=== PATIENT | female | born 1965 | race Caucasian/White ===

== ENCOUNTER 2020-12-03 22:49 | Emergency (ER) | payer OTHER ==
[2020-12-03] MEDS ORDERED: DECADRON 10MG INJ. ONE (23:27)
[2020-12-03] MEDS ORDERED: Sodium Chloride 0.9% 1000 ML 1,000 ML ONE (23:27)
[2020-12-03] MEDS: DECADRON 10MG INJ. IV ONE (23:31)
[2020-12-03] MEDS: Sodium Chloride 0.9% 1000 ML 1,000 ML IV STA (23:31)
[2020-12-03] MEDS ORDERED: MORPHINE SULFATE 2 MG INJ ONE (23:39)
[2020-12-03] MEDS: MORPHINE SULFATE 2 MG INJ IV ONE (23:42)
[2020-12-03 23:43] LABS: Absolute Neutrophil Ct (ANC) 8.07 (1.4-6.9); BASOPHIL % 0.1 % (0.0-0.4); Basophil (Absolute #) 0.01 (0-0.4); Eosinophil % 1.7 % (0.00-5.0); Eosinophil (Absolute #) 0.19 (0-0.5); Hematocrit 42.3 % (35-47); Hemoglobin 14.1 gm/dl (12.0-16.0); Lymphocyte (Absolute #) 1.95 (1.0-4.6); Lymphocytes % 17.3 % (24.0-44.0); Mean Cell Volume 89.4 fl (78-100); Mean Corpuscular Hemoglobin 29.8 pg (26-32); Mean Corpuscular Hgb Concent. 33.3 g/dl (32-36); Mean Platelet Volume 11.4 fl (7.5-11.0); Monocyte (Absolute #) 1.08 (0.0-1.3); Monocytes % 9.6 % (0.0-12.0); Neutrophil % 71.3 % (36.0-66.0); Platelet Count 252 K/mm3 (150-450); Red Blood Count 4.73 M/mm3 (4.1-5.4); Red Cell Distribution Width 12.3 % (11.5-14.0); White Blood Count 11.3 K/mm3 (4.0-10.5)
[2020-12-03 23:49] LABS: ALBUMIN 4.3 g/dL (3.5-5.0); ALKALINE PHOSPHATASE 200 U/L (38-126); ANION GAP 15.5 MEQ/L (5-15); BLOOD UREA NITROGEN 13 mg/dL (7-17); CHLORIDE 104 mmol/L (98-107); Calcium 9.3 mg/dL (8.4-10.2); Carbon Dioxide 22 mmol/L (22-30); Creatinine 1 0.45 mg/dL (0.52-1.04); EST GLOMERULAR FILTRATION RATE > 60.0 ML/MIN; Glucose 165 mg/dL (74-106); Potassium 3.6 mmol/L (3.5-5.1); SGOT/AST 88 U/L (14-36); SGPT/ALT 105 U/L (0-35); SODIUM 138 mmol/L (137-145); Total Protein 7.8 g/dL (6.3-8.2)
[2020-12-04 00:07] LABS: INFLUENZA A NEGATIVE (NEGATIVE); INFLUENZA B NEGATIVE (NEGATIVE)
--- NOTE | 2020-12-04 00:33 | ERPHSYRPT ---
- History of Present Illness Time Seen by Provider: 12/03/20 22:55 Source: patient Exam Limitations: no limitations Patient Subjective Stated Complaint: pt states she was covid positive last wednesday. has been having severe fatigue, sore throat. today she has had some shortness of breath and a severe headache today. Triage Nursing Assessment: pt alert and oriented, answers questions approp. pt back per wheelchair and ambulates to stretcher and into bathroom with no assist. skin warm and dry. respirations nonlabored with lungs cta. pt states no cough and no cough noted during exam. pupils equal and reactive. bilat upper and lower ext strength equal and wnl. Physician History: Patient is a 55-year-old female Covid positive x3 days. Patient presents to our ED with complaints of severe fatigue sore throat shortness of breath and a headache. Symptoms have been constant. Symptoms are moderate in intensity. No associated nausea or vomiting. No diarrhea. No rash. No fever. No associated chest pain. Timing/Duration: today Severity: moderate Modifying Factors: Improves With: nothing Associated Symptoms: denies symptoms Allergies/Adverse Reactions: No Known Drug Allergies Allergy (Verified 12/04/20 00:14) Home Medications: Lorazepam 1 mg [Ativan 1 MG] 1 mg PO TIDPRN PRN 04/23/13 [History] Zolpidem Tartrate [Ambien Cr] 12.5 mg PO HS 04/23/13 [History] Duloxetine HCl 30 mg [Cymbalta 30 MG Capsule] 30 mg PO DAILY 12/04/20 [History] Hx Tetanus, Diphtheria Vaccination/Date Given: No Hx Influenza Vaccination/Date Given: No Hx Pneumococcal Vaccination/Date Given: No Immunizations Up to Date: No Travel Risk - International Travel Have you traveled outside of the country in past 3 weeks: No - Coronavirus Screening Are you exhibiting any of the following symptoms?: Yes Symptoms: Shortness of Breath, Loss of Taste or Smell, Headaches/Body Aches/Fatigue Close contact with a COVID-19 positive Pt in past 14-21 Days: Yes - Vaccine Status Have you recieved a Covid-19 vaccination: No - Review of Systems Constitutional: No Symptoms, No Fever, No Chills Eyes: No Symptoms Ears, Nose, & Throat: No Symptoms Respiratory: No Symptoms, No Cough, No Dyspnea Cardiac: No Symptoms, No Chest Pain, No Edema, No Syncope Abdominal/Gastrointestinal: No Symptoms, No Abdominal Pain, No Nausea, No Vomiting, No Diarrhea Genitourinary Symptoms: No Symptoms, No Dysuria Musculoskeletal: No Symptoms, No Back Pain, No Neck Pain Skin: No Symptoms, No Rash Neurological: No Symptoms, No Dizziness, No Focal Weakness, No Sensory Changes Psychological: No Symptoms Endocrine: No Symptoms Hematologic/Lymphatic: No Symptoms Immunological/Allergic: No Symptoms All Other Systems: Reviewed and Negative - Past Medical History Pertinent Past Medical History: Yes Neurological History: Migraines ENT History: No Pertinent History Cardiac History: No Pertinent History Respiratory History: No Pertinent History Endocrine Medical History: No Pertinent History Musculoskeletal History: No Pertinent History GI Medical History: No Pertinent History History: No Pertinent History Psycho-Social History: Anxiety, Bipolar, Depression, Panic Disorder Female Reproductive Disorders: No Pertinent History - Past Surgical History Past Surgical History: Yes Neuro Surgical History: No Pertinent History Cardiac: No Pertinent History Gastrointestinal: No Pertinent History Genitourinary: No Pertinent History Musculoskeletal: No Pertinent History Female Surgical History: Hysterectomy - Social History Smoking Status: Never smoker Exposure to second hand smoke: Yes Drug Use: none Patient Lives Alone: No Significant Family History: no pertinent family hx - Female History Hx Last Menstrual Period: hyster - Nursing Vital Signs Nursing Vital Signs: Initial Vital Signs Temperature 98.1 F 12/03/20 22:49 Pulse Rate 75 12/03/20 22:49 Respiratory Rate 18 12/03/20 22:49 Blood Pressure 146/82 12/03/20 22:49 O2 Sat by Pulse Oximetry 100 12/03/20 22:49 Pain Scale Pain Intensity 2 - Physical Exam General Appearance: no apparent distress, alert Eye Exam: PERRL/EOMI, eyes nml inspection Ears, Nose, Throat Exam: normal ENT inspection, TMs normal, pharynx normal, moist mucous membranes Neck Exam: normal inspection, non-tender, supple, full range of motion Respiratory Exam: normal breath sounds, lungs clear, No respiratory distress Cardiovascular Exam: regular rate/rhythm, normal heart sounds, normal peripheral pulses Gastrointestinal/Abdomen Exam: soft, normal bowel sounds, No tenderness, No mass Back Exam: normal inspection, normal range of motion, No CVA tenderness, No robyn tebral tenderness Extremity Exam: normal inspection, normal range of motion, pelvis stable Neurologic Exam: alert, oriented x 3, cooperative, normal mood/affect, nml cerebellar function, nml station & gait, sensation nml, No motor deficits Skin Exam: normal color, warm, dry, No rash Lymphatic Exam: No adenopathy SpO2 Interpretation: normal SpO2: 100 O2 Delivery: Room Air - Course Nursing assessment & vital signs reviewed: Yes EKG Interpreted by Me: RATE (69), Sinus Rhythm, NORMAL AXIS, Left [place] Deviation, NORMAL INTERVALS - Radiology Exams Chest X-ray Interpretation: Teleradiologist Report (Patchy ill-defined areas of groundglass disease in the left lower lung field with additional patchy gr oundglass disease in the right lower lung field. By basilar patchy groundglass disease concerning for Covid infection.) - CT Exams Head CT Interpretation: Tele-radiologist Report (No acute intracranial abnormality.) Ordered Tests: Active Orders 24 hr Category Date Time Status [employer] Manager STAT Care 12/03/20 23:06 Active EKG-ER Only STAT Care 12/03/20 23:06 Active IV Insertion STAT Care 12/03/20 23:06 Active Pulse Oximetry (ED) STAT Care 12/03/20 23:06 Active CHEST 1 VIEW (PORTABLE) Stat Exams 12/03/20 23:56 Taken BLOOD CULTURE Stat Lab 12/03/20 23:30 Received CBC W DIFF Stat Lab 12/03/20 23:20 Completed CMP Stat Lab 12/03/20 23:20 Completed CULTURE,URINE Stat Lab 12/03/20 23:25 Received D-DIMER QUANTITATIVE Stat Lab 12/03/20 23:20 Completed INFLUENZA A+B BRADY Stat Lab 12/03/20 23:20 Completed Lactic Acid Stat Lab 12/03/20 23:06 Completed TROPONIN Q3H Lab 12/04/20 01:37 Completed TROPONIN Q3H Lab 12/04/20 04:30 Ordered TROPONIN Q3H Lab 12/04/20 07:30 Ordered TROPONIN Q3H Lab 12/04/20 10:30 Ordered TROPONIN Q3H Lab 12/04/20 13:30 Ordered UA W/RFX UR CULTURE Stat Lab 12/03/20 23:25 Completed Medication Summary Discontinued Medications Generic Name Dose Route Start Last Admin Trade Name Freq PRN Reason Stop Dose Admin Dexamethasone Sodium Phosphate 6 mg 12/03/20 23:07 12/03/20 23:31 Decadron 10mg Inj. IV 12/03/20 23:08 6 mg STAT ONE Administration Dexamethasone Sodium Phosphate Confirm 12/03/20 23:27 Decadron 10mg Inj. Administered 12/03/20 23:28 Dose 10 mg .ROUTE .STK-MED ONE Sodium Chloride 1,000 mls @ 999 mls/hr 12/03/20 23:06 12/03/20 23:31 Sodium Chloride 0.9% 1000 Ml IV 12/04/20 00:06 999 mls/hr .Q1H1M STA Administration Sodium Chloride Confirm 12/03/20 23:27 Sodium Chloride 0.9% 1000 Ml Administered 12/03/20 23:28 Dose 1,000 mls @ ud .ROUTE .STK-MED ONE Ketorolac Tromethamine 30 mg 12/04/20 00:40 12/04/20 00:50 Toradol 30 Mg Injection IV 12/04/20 00:41 30 mg STAT ONE Administration Ketorolac Tromethamine Confirm 12/04/20 00:48 Toradol 30 Mg Injection Administered 12/04/20 00:49 Dose 30 mg .ROUTE .STK-MED ONE Morphine Sulfate 2 mg 12/03/20 23:39 12/03/20 23:42 Morphine Sulfate 2 Mg Inj IV 12/03/20 23:40 2 mg STAT ONE Administration Morphine Sulfate Confirm 12/03/20 23:39 Morphine Sulfate 2 Mg Inj Administered 12/03/20 23:40 Dose 2 mg .ROUTE .STK-MED ONE Prochlorperazine Edisylate 10 mg 12/04/20 00:39 12/04/20 00:50 Compazine 10 Mg/2 Ml IV 12/04/20 00:40 10 mg STAT ONE Administration Prochlorperazine Edisylate Confirm 12/04/20 00:48 Compazine 10 Mg/2 Ml Administered 12/04/20 00:49 Dose 10 mg .ROUTE .STK-MED ONE Lab/Rad Data: Laboratory Result Diagrams 12/03/20 23:20 12/03/20 23:20 Laboratory Results 12/04/20 12/03/20 12/03/20 Range/Units 01:37 23:30 23:25 WBC (4.0-10.5) K/mm3 RBC (4.1-5.4) M/mm3 Hgb (12.0-16.0) gm/dl Hct (35-47) % MCV (78-100) fl MCH (26-32) pg MCHC (32-36) g/dl RDW (11.5-14.0) % Plt Count (150-450) K/mm3 MPV (7.5-11.0) fl Gran % (36.0-66.0) % Eos # (Auto) (0-0.5) Absolute Lymphs (auto) (1.0-4.6) Absolute Monos (auto) (0.0-1.3) Lymphocytes % (24.0-44.0) % Monocytes % (0.0-12.0) % Eosinophils % (0.00-5.0) % Basophils % (0.0-0.4) % Absolute Granulocytes (1.4-6.9) Basophils # (0-0.4) D-Dimer (215-500) ng/mL Sodium (137-145) mmol/L Potassium (3.5-5.1) mmol/L Chloride (98-107) mmol/L Carbon Dioxide (22-30) mmol/L Anion Gap (5-15) MEQ/L BUN (7-17) mg/dL Creatinine (0.52-1.04) mg/dL Estimated GFR ML/MIN Glucose (74-106) mg/dL Lactic Acid (0.4-2.0) Calcium (8.4-10.2) mg/dL Total Bilirubin (0.2-1.3) mg/dL AST (14-36) U/L ALT (0-35) U/L Alkaline Phosphatase (38-126) U/L Troponin I < 0.012 (0.000-0.034) ng/mL Serum Total Protein (6.3-8.2) g/dL Albumin (3.5-5.0) g/dL Urine Color YELLOW (YELLOW) Urine Appearance CLOUDY (CLEAR) Urine pH 7.0 (5-6) Ur Specific [place] 1.021 (1.005-1.025) Urine Protein 30 (Negative) Urine Ketones TRACE (NEGATIVE) Urine Blood NEGATIVE (0-5) Yo/ul Urine Nitrite NEGATIVE (NEGATIVE) Urine Bilirubin NEGATIVE (NEGATIVE) Urine Urobilinogen 4 (0-1) mg/dL Ur Leukocyte Esterase TRACE (NEGATIVE) Urine WBC (Auto) NONE (0-5) /HPF Urine RBC (Auto) NONE (0-2) /HPF U Epithel Cells (Auto) NONE (FEW) /HPF Urine Bacteria (Auto) NONE (NEGATIVE) /HPF Amorphous Crystals FEW (NEGATIVE) /HPF Urine Mucus (Auto) SLIGHT (NEGATIVE) /HPF Urine Culture Reflexed YES (NO) Urine Glucose NEGATIVE (NEGATIVE) mg/dL Influenza Type A Ag (NEGATIVE) Influenza Type B Ag (NEGATIVE) Group A Strep Antibody NOT DETECTED (NEGATIVE) Slides for Path Review 12/03/20 12/03/20 12/03/20 Range/Units 23:20 23:20 23:20 WBC (4.0-10.5) K/mm3 RBC (4.1-5.4) M/mm3 Hgb (12.0-16.0) gm/dl Hct (35-47) % MCV (78-100) fl MCH (26-32) pg MCHC (32-36) g/dl RDW (11.5-14.0) % Plt Count (150-450) K/mm3 MPV (7.5-11.0) fl Gran % (36.0-66.0) % Eos # (Auto) (0-0.5) Absolute Lymphs (auto) (1.0-4.6) Absolute Monos (auto) (0.0-1.3) Lymphocytes % (24.0-44.0) % Monocytes % (0.0-12.0) % Eosinophils % (0.00-5.0) % Basophils % (0.0-0.4) % Absolute Granulocytes (1.4-6.9) Basophils # (0-0.4) D-Dimer 446 (215-500) ng/mL Sodium 138 (137-145) mmol/L Potassium 3.6 (3.5-5.1) mmol/L Chloride 104 (98-107) mmol/L Carbon Dioxide 22 (22-30) mmol/L Anion Gap 15.5 H (5-15) MEQ/L BUN 13 (7-17) mg/dL Creatinine 0.45 L (0.52-1.04) mg/dL Estimated GFR > 60.0 ML/MIN Glucose 165 H (74-106) mg/dL Lactic Acid (0.4-2.0) Calcium 9.3 (8.4-10.2) mg/dL Total Bilirubin 0.50 (0.2-1.3) mg/dL AST 88 H (14-36) U/L ALT 105 H (0-35) U/L Alkaline Phosphatase 200 H (38-126) U/L Troponin I (0.000-0.034) ng/mL Serum Total Protein 7.8 (6.3-8.2) g/dL Albumin 4.3 (3.5-5.0) g/dL Urine Color (YELLOW) Urine Appearance (CLEAR) Urine pH (5-6) Ur Specific [place] (1.005-1.025) Urine Protein (Negative) Urine Ketones (NEGATIVE) Urine Blood (0-5) Yo/ul Urine Nitrite (NEGATIVE) Urine Bilirubin (NEGATIVE) Urine Urobilinogen (0-1) mg/dL Ur Leukocyte Esterase (NEGATIVE) Urine WBC (Auto) (0-5) /HPF Urine RBC (Auto) (0-2) /HPF U Epithel Cells (Auto) (FEW) /HPF Urine Bacteria (Auto) (NEGATIVE) /HPF Amorphous Crystals (NEGATIVE) /HPF Urine Mucus (Auto) (NEGATIVE) /HPF Urine Culture Reflexed (NO) Urine Glucose (NEGATIVE) mg/dL Influenza Type A Ag NEGATIVE (NEGATIVE) Influenza Type B Ag NEGATIVE (NEGATIVE) Group A Strep Antibody (NEGATIVE) Slides for Path Review 12/03/20 12/03/20 Range/Units 23:20 23:06 WBC 11.3 H (4.0-10.5) K/mm3 RBC 4.73 (4.1-5.4) M/mm3 Hgb 14.1 (12.0-16.0) gm/dl Hct 42.3 (35-47) % MCV 89.4 (78-100) fl MCH 29.8 (26-32) pg MCHC 33.3 (32-36) g/dl RDW 12.3 (11.5-14.0) % Plt Count 252 (150-450) K/mm3 MPV 11.4 H (7.5-11.0) fl Gran % 71.3 H (36.0-66.0) % Eos # (Auto) 0.19 (0-0.5) Absolute Lymphs (auto) 1.95 (1.0-4.6) Absolute Monos (auto) 1.08 (0.0-1.3) Lymphocytes % 17.3 L (24.0-44.0) % Monocytes % 9.6 (0.0-12.0) % Eosinophils % 1.7 (0.00-5.0) % Basophils % 0.1 (0.0-0.4) % Absolute Granulocytes 8.07 H (1.4-6.9) Basophils # 0.01 (0-0.4) D-Dimer (215-500) ng/mL Sodium (137-145) mmol/L Potassium (3.5-5.1) mmol/L Chloride (98-107) mmol/L Carbon Dioxide (22-30) mmol/L Anion Gap (5-15) MEQ/L BUN (7-17) mg/dL Creatinine (0.52-1.04) mg/dL Estimated GFR ML/MIN Glucose (74-106) mg/dL Lactic Acid 1.5 (0.4-2.0) Calcium (8.4-10.2) mg/dL Total Bilirubin (0.2-1.3) mg/dL AST (14-36) U/L ALT (0-35) U/L Alkaline Phosphatase (38-126) U/L Troponin I (0.000-0.034) ng/mL Serum Total Protein (6.3-8.2) g/dL Albumin (3.5-5.0) g/dL Urine Color (YELLOW) Urine Appearance (CLEAR) Urine pH (5-6) Ur Specific [place] (1.005-1.025) Urine Protein (Negative) Urine Ketones (NEGATIVE) Urine Blood (0-5) Yo/ul Urine Nitrite (NEGATIVE) Urine Bilirubin (NEGATIVE) Urine Urobilinogen (0-1) mg/dL Ur Leukocyte Esterase (NEGATIVE) Urine WBC (Auto) (0-5) /HPF Urine RBC (Auto) (0-2) /HPF U Epithel Cells (Auto) (FEW) /HPF Urine Bacteria (Auto) (NEGATIVE) /HPF Amorphous Crystals (NEGATIVE) /HPF Urine Mucus (Auto) (NEGATIVE) /HPF Urine Culture Reflexed (NO) Urine Glucose (NEGATIVE) mg/dL Influenza Type A Ag (NEGATIVE) Influenza Type B Ag (NEGATIVE) Group A Strep Antibody (NEGATIVE) Slides for Path Review YES - Progress Progress: improved Progress Note: Patient reassessed. She feels well. Vital stable. Patient ambulated in our ED. Patient maintained a normal O2 sat in the high 90s. EKG normal sinus rhythm. -3-hour troponin. Patient presented with a headache. CT head negative. D-dimer negative. Influenza negative. Patient had a mild sore throat. Rapid strep negative. Lactic acid was 1.5. Patient received IV fluids. Clinically patient appears well. Chest x-ray shows bibasilar opacities left greater than right. No indication for antibiotics at this time. She feels energetic now headache resolved. Case discussed with Dr. Ball feels patient is appropriate for discharge. Discussed the mildly elevated alk phos as well as the liver enzymes. No indication for further evaluation from an emergency room perspective. Patient will follow up with primary care doctor within 48 hours for reevaluation. Patient voiced no other complaints or concerns at this time. She is requesting discharge at this time. 12/04/20 02:[address] Other Will see patient in: other Counseled pt/family regarding: lab results, diagnosis, need for follow-up, rad results - Departure Departure Disposition: Home Clinical Impression: COVID-19, Fatigue, Shortness of breath, Headache, Elevated alkaline phosphatase level Condition: Stable Critical Care Time: No Referrals: JONATHON ADRIAN MD [Primary Care Provider] - Additional Instructions: Discharge/Care Plan SONY CASTRO was seen on 12/04/20 in the Emergency Room. The patient was counseled regarding Diagnosis,Lab results, Imaging studies, need for follow up and when to return to the Emergency Room. Prescriptions given: Discharge Note I have spoken with the patient and/or caregivers. I have explained the patient's condition, diagnosis and treatment plan based on the information available to me at this time. I have answered the patient's and/or caregiver's questions and addressed any concerns. The patient and/or caregivers have as good understanding of the patient's diagnosis, condition and treatment plan as can be expected at this point. The vital signs have been stable. The patient's condition is stable and appropriate for discharge from the emergency department. The patient will pursue further outpatient evaluation with the primary care physician or other designated or consulting physician as outlined in the discharge instructions. The patient and/or caregivers are agreeable to this plan of care and follow-up instructions have been explained in detail. The patient and/or caregivers have received these instruction. The patient/and or caregivers are aware that any significant change in condition or worsening of symptoms should prompt an immediate return to this or the closest emergency department or call 911.
[2020-12-04] MEDS ORDERED: TORAdol 30 mg Injection ONE (00:48)
[2020-12-04] MEDS ORDERED: Compazine 10 MG/2 ML ONE (00:48)
[2020-12-04] MEDS: TORAdol 30 mg Injection IV ONE (00:50)
[2020-12-04] MEDS: Compazine 10 MG/2 ML IV ONE (00:50)
[2020-12-04 01:03] LABS: Slide Review 1 YES
[2020-12-04 01:35] LABS: Amourphous Crystal FEW /HPF (NEGATIVE); Appearance CLOUDY (CLEAR); Bilirubin NEGATIVE (NEGATIVE); Blood NEGATIVE Ery/ul (0-5); Glucose NEGATIVE (NEGATIVE); Ketones TRACE (NEGATIVE); Leukocyte Esterase TRACE (NEGATIVE); Mucus SLIGHT /HPF (NEGATIVE); Nitrite NEGATIVE (NEGATIVE); Protein,Urine Dip 30 (Negative); Specific Gravity 1.021 (1.005-1.025); Urobilinogen 4 mg/dL (0-1)
[2020-12-04 02:09] VITALS: O2SAT 100
[2020-12-04 02:18] VITALS: BP 144/78; PULSE 74
--- NOTE | 2020-12-04 13:33 | XRAY ---
Exam: AP upright portable chest film from 12/03/2020. Comparison: AP portable chest film from 04/28/2010. Indication: 55-year-old female with dyspnea; patient is positive for covid-19; shortness of breath. Findings: The transverse heart size is within normal limits. Mild airspace/groundglass infiltrate is seen at the central left lung base. Less pronounced groundglass disease is seen at the right lung base as well. These findings are concerning for covid-19 lung infection. The upper and midlung zones remain clear. There is no pneumothorax or pleural effusion. No acute osseous process is seen. EKG leads are noted in place. Impression: 1. Mild bibasilar airspace/groundglass opacities, left greater than right, are seen. This is concerning for covid-19 lung infection.
--- NOTE | 2020-12-04 14:22 | XRAY ---
Exam: CT of the head without IV contrast from 12/04/2020. CTDI: 53.92 mGy Comparison: None. Indication: 55-year-old female with severe headaches; positive for Covid-19. Technique: Non-IV contrast axial images were obtained through the brain. Reconstructed coronal and sagittal images were created and reviewed. Findings: The ventricles are of normal size and configuration. No focal mass effect or midline shift is seen. No acute intracranial bleed or abnormal extra-axial fluid collection is seen. The benavidez matter-white matter interfaces appear unremarkable. No low attenuation infarct is seen within a major cerebral or cerebellar artery distribution. The cortical sulci and basilar cisterns appear unremarkable. There is some mild mucosal thickening at the inferior and lower medial aspect of the left maxillary sinus. A 10 mm retention cyst cannot be excluded at this latter location. No air-fluid levels are seen. The remainder of the paranasal sinuses appears essentially clear. There is some deviation of the nasal septum toward the left. The mastoid air cells are grossly clear without effusion. No gross abnormality of the orbits is seen. Mild generalized calvarial hyperostosis is seen. No fracture or other focal bone lesion within the calvarium is seen. Impression: 1. No acute intracranial bleed or other acute intracranial process. 2. Mild chronic sinus disease/sinusitis within the inferior aspect of the left maxillary sinus. 3. 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
== END 2020-12-04 02:36 | disposition home or self-care (01) ==
LOC: ED 22:49
DX: U07.1 COVID-19 (principal); R53.83 Other fatigue; J02.9 Acute pharyngitis, unspecified; R06.02 Shortness of breath; R51.9 Headache, unspecified; Z79.899 Other long term (current) drug therapy; R74.8 Abnormal levels of other serum enzymes
CPT/HCPCS: 36000; 36415; 70450; 71045; 80053; 81001; 83605; 84484; 85025; 85379; 87040; 87086; 87400; 87651; 93005; 93041; 94760; 96374; 96375; 99284; J1100; J1885; J2270

== ENCOUNTER 2022-10-05 09:16 | Emergency (ER) | payer OTHER ==
--- NOTE | 2022-10-05 09:24 | ERPHSYRPT ---
- History of Present Illness Time Seen by Provider: 10/05/22 09:24 Historian: patient Exam Limitations: no limitations Physician History: This is an overweight white female patient who is 57 years old and is a patient of Dr. Adrian who presents with epigastric abdominal pain of relatively sudden onset that occurred this morning. Patient states that she had strawberry s hortcake last evening for a meal. Patient also states that she took an injection of Ozempic Wednesday prior to this evaluation. Patient has a history of migraine headaches, anxiety/panic disorder, bipolar disorder and has had a hysterectomy in the past. Patient denies chest pain and she denies shortness of breath. She has had nausea and vomiting since the pain began this morning. She had no diarrhea. She has had no fever. She has never had this kind of pain before. The patient took Pepto-Bismol thinking it may be heartburn but this did not help her symptoms. Timing/Duration: today Quality: aching, sharpness Abdominal Pain Onset Location: epigastric Pain Radiation: no radiation Severity of Pain-Max: moderate Severity of Pain-Current: moderate Modifying Factors: Improves With: vomiting Associated Symptoms: nausea, vomiting, No chest pain, No diarrhea, No fever/chills, No neck pain, No shortness of breath Previous symptoms: no prior history Allergies/Adverse Reactions: No Known Drug Allergies Allergy (Verified 10/05/22 09:26) Home Medications: Lorazepam 1 mg [Ativan 1 MG] 1 mg PO TIDPRN PRN 04/23/13 [History] Zolpidem Tartrate [Ambien Cr] 12.5 mg PO HS 04/23/13 [History] Desvenlafaxine Succinate [Desvenlafaxine Succinate ER] 1 tab PO DAILY 10/05/22 [History] Hydrocodone/Acetaminophen [Hydrocodone-Acetamin 10-325 mg] 0.5 tab PO BID 10/05/22 [History] Semaglutide [Ozempic] 0.25 mg SQ WEEKLY 10/05/22 [History] Hx Tetanus, Diphtheria Vaccination/Date Given: No Hx Influenza Vaccination/Date Given: No Hx Pneumococcal Vaccination/Date Given: No Travel Risk - International Travel Have you traveled outside of the country in past 3 weeks: No - Coronavirus Screening Are you exhibiting any of the following symptoms?: No Close contact with a COVID-19 positive Pt in past 14-21 Days: No - Vaccine Status Have you recieved a Covid-19 vaccination: No - Review of Systems Constitutional: No Symptoms Eyes: No Symptoms Ears, Nose, & Throat: No Symptoms Respiratory: No Symptoms Cardiac: No Symptoms Abdominal/Gastrointestinal: Abdominal Pain (Epigastrium), Nausea, Vomiting, Appetite Changes, No Diarrhea, No Constipation Genitourinary Symptoms: No Symptoms Musculoskeletal: No Symptoms Skin: No Symptoms Neurological: No Symptoms Psychological: No Symptoms Endocrine: No Symptoms Hematologic/Lymphatic: No Symptoms Immunological/Allergic: No Symptoms All Other Systems: Reviewed and Negative - Past Medical History Pertinent Past Medical History: Yes Neurological History: Migraines ENT History: No Pertinent History Cardiac History: No Pertinent History Respiratory History: No Pertinent History Endocrine Medical History: No Pertinent History Musculoskeletal History: No Pertinent History GI Medical History: No Pertinent History History: No Pertinent History Psycho-Social History: Anxiety, Bipolar, Depression, Panic Disorder Female Reproductive Disorders: No Pertinent History - Past Surgical History Past Surgical History: Yes Neuro Surgical History: No Pertinent History Cardiac: No Pertinent History Gastrointestinal: No Pertinent History Genitourinary: No Pertinent History Musculoskeletal: No Pertinent History Female Surgical History: Hysterectomy - Social History Smoking Status: Never smoker Exposure to second hand smoke: Yes Drug Use: none Patient Lives Alone: No Significant Family History: no pertinent family hx - Nursing Vital Signs Nursing Vital Signs: Initial Vital Signs Pulse Rate 77 10/05/22 09:26 Respiratory Rate 17 10/05/22 09:26 Blood Pressure 141/84 10/05/22 09:26 O2 Sat by Pulse Oximetry 100 10/05/22 09:26 Pain Scale Pain Intensity 0 - Physical Exam General Appearance: mild distress, alert, anxiety, other (Overweight) Eye Exam: PERRL/EOMI, eyes nml inspection Ears, Nose, Throat Exam: normal ENT inspection, moist mucous membranes Neck Exam: normal inspection, non-tender, supple, full range of motion Respiratory Exam: normal breath sounds, lungs clear, airway intact, No chest tenderness, No respiratory distress Cardiovascular Exam: regular rate/rhythm, normal heart sounds, normal peripheral pulses Gastrointestinal/Abdomen Exam: soft, normal bowel sounds, tenderness (Gastrium), guarding (Epigastrium), No rebound Pelvic Exam: not done Rectal Exam: not done Back Exam: normal inspection, normal range of motion, No CVA tenderness, No vertebral tenderness Extremity Exam: normal inspection, normal range of motion, pelvis stable Neurologic Exam: alert, oriented x 3, cooperative, boot maker II-XII nml as tested, normal mood/affect, nml cerebellar function, nml station & gait, sensation nml Skin Exam: normal color, warm, dry Lymphatic Exam: No adenopathy SpO2 Interpretation: normal O2 Delivery: Room Air - Course Nursing assessment & vital signs reviewed: Yes Ordered Tests: Active Orders 24 hr Category Date Time Status IV Insertion STAT Care 10/05/22 09:45 Active ABDOMEN AND PELVIS W/0 CONTRAS [CT] Stat Exams 10/05/22 09:45 Completed AMYLASE Stat Lab 10/05/22 09:30 Completed CBC W DIFF Stat Lab 10/05/22 09:30 Completed CMP Stat Lab 10/05/22 09:30 Completed CULTURE,URINE Stat Lab 10/05/22 09:30 Received LIPASE Stat Lab 10/05/22 09:30 Completed UA W/RFX UR CULTURE Stat Lab 10/05/22 09:30 Completed Medication Summary Discontinued Medications Generic Name Dose Route Start Last Admin Trade Name Freq PRN Reason Stop Dose Admin Hydromorphone HCl 1 mg 10/05/22 09:45 10/05/22 10:01 Hydromorphone 1 Mg/1ml Inj IV 10/05/22 09:46 1 mg STAT ONE Administration Hydromorphone HCl Confirm 10/05/22 09:53 Hydromorphone 1 Mg/1ml Inj Administered 10/05/22 09:54 Dose 1 mg .ROUTE .STK-MED ONE Sodium Chloride 1,000 mls @ 999 mls/hr 10/05/22 09:45 10/05/22 11:05 Sodium Chloride 0.9% 1000 Ml IV 10/05/22 10:45 Infused .Q1H1M STA Infusion Sodium Chloride Confirm 10/05/22 09:53 Sodium Chloride 0.9% 1000 Ml Administered 10/05/22 09:54 Dose 1,000 mls @ ud .ROUTE .STK-MED ONE Ceftriaxone Sodium/Dextrose 1 g in 50 mls @ 100 mls/hr 10/05/22 11:55 10/05/22 12:36 Rocephin 1 Gm-D5w 50 Ml Bag IV 10/05/22 12:24 Infused STAT STA Infusion Ceftriaxone Sodium/Dextrose Confirm 10/05/22 11:56 Rocephin 1 Gm-D5w 50 Ml Bag Administered 10/05/22 11:57 Dose 1 g in 50 mls @ ud IV .STK-MED ONE Ondansetron HCl 4 mg 10/05/22 09:45 10/05/22 10:00 Ondansetron Hcl 4 Mg/2 Ml Vial IV 10/05/22 09:46 4 mg STAT ONE Administration Ondansetron HCl Confirm 10/05/22 09:53 Ondansetron Hcl 4 Mg/2 Ml Vial Administered 10/05/22 09:54 Dose 4 mg .ROUTE .STK-MED ONE Pantoprazole Sodium 40 mg 10/05/22 09:45 10/05/22 10:01 Pantoprazole 40 Mg Vial IV 10/05/22 09:46 40 mg STAT ONE Administration Pantoprazole Sodium Confirm 10/05/22 09:53 Pantoprazole 40 Mg Vial Administered 10/05/22 09:54 Dose 40 mg IV .STK-MED ONE Lab/Rad Data: Laboratory Result Diagrams 10/05/22 09:30 10/05/22 09:30 Laboratory Results 10/05/22 10/05/22 10/05/22 Range/Units 09:30 09:30 09:30 WBC 12.5 H (4.0-10.5) x10^3/uL RBC 4.65 (4.1-5.4) x10^6/uL Hgb 14.0 (12.0-16.0) g/dL Hct 42.0 (35-47) % MCV 90.3 (78-100) fL MCH 30.1 (26-32) pg MCHC 33.3 (32-36) g/dL RDW 12.4 (11.5-14.0) % Plt Count 298 (150-450) x10^3/uL MPV 10.0 (7.5-11.0) fL Gran % 70.5 H (36.0-66.0) % Immature Gran % (Auto) 0.4 (0.00-0.4) % Nucleat RBC Rel Count 0.0 (0.00-0.1) % Eos # (Auto) 0.39 (0-0.5) x10^3/uL Immature Gran # (Auto) 0.05 H (0.00-0.03) x10^3u/L Absolute Lymphs (auto) 2.25 (1.0-4.6) x10^3/uL Absolute Monos (auto) 0.94 (0.0-1.3) x10^3/uL Absolute Nucleated RBC 0.00 (0.00-0.01) x10^3u/L Lymphocytes % 18.0 L (24.0-44.0) % Monocytes % 7.5 (0.0-12.0) % Eosinophils % 3.1 (0.00-5.0) % Basophils % 0.5 (0.0-0.4) % Absolute Granulocytes 8.78 H (1.4-6.9) x10^3/uL Basophils # 0.06 (0-0.4) x10^3/uL Sodium 143 (137-145) mmol/L Potassium 3.2 L (3.5-5.1) mmol/L Chloride 105 (98-107) mmol/L Carbon Dioxide 27 (22-30) mmol/L Anion Gap 13.4 (5-15) MEQ/L BUN 11 (7-17) mg/dL Creatinine 0.63 (0.52-1.04) mg/dL Estimated GFR > 60.0 ML/MIN Glucose 133 H (74-106) mg/dL Calcium 9.1 (8.4-10.2) mg/dL Total Bilirubin 1.10 (0.2-1.3) mg/dL AST 128 H (14-36) U/L ALT 71 H (0-35) U/L Alkaline Phosphatase 159 H (38-126) U/L Serum Total Protein 7.5 (6.3-8.2) g/dL Albumin 4.1 (3.5-5.0) g/dL Amylase 62 (30-110) U/L Lipase 130 (23-300) U/L Urine Color Dark Yellow A (Yellow) Urine Appearance Cloudy A (Clear) Urine pH 7.0 (4.6-8.0) Ur Specific [place] 1.020 (1.005-1.030) Urine Protein Trace A (Negative) Urine Glucose (UA) Negative (Negative) mg/dL Urine Ketones 15 A (Negative) Urine Blood Negative (Negative) Urine Nitrite Negative (Negative) Urine Bilirubin Negative (Negative) Urine Urobilinogen 4.0 A (0.2) mg/dL Ur Leukocyte Esterase Small A (Negative) U Hyaline Cast (Auto) NONE SEEN (0-2) /LPF Urine Microscopic RBC 0-2 (0-5) /HPF Urine Microscopic WBC 6-10 A (0-5) /HPF Ur Epithelial Cells None Seen (None Seen) /HPF Urine Bacteria None Seen (None Seen) /HPF Urine Culture Reflexed YES (NO) - Progress Progress: improved, pain not gone completely, re-examined Progress Note: 10/05/22 11:57 This patient's medical issues 1 of moderate complexity. Level of complexity and the work-up performed is based on review of the patient's past medical history, review of the patient's medication list, review of the patient's drug allergy list, history of present illness and physical findings on examination. The work-up includes placement of a intravenous line, infusion of 1 L of normal saline solution, infusion of Zofran 4 mg intravenously, infusion of 1 mg of Dilaudid intravenously. In addition, we obtained a urinalysis, CBC, CMP, amylase and lipase levels as well as a CAT scan of the abdomen and pelvis. I reviewed the results of the blood and urine studies. She has a urinary tract infection which we will treat here in the emergency department with Rocephin 1 g intravenously and sent a prescription of Keflex 500 mg orally 3 times a day for the next 7 days. I am awaiting the results of the CAT scan of the abdomen pelvis which will be interpreted by the radiologist and I will review that impression. 10/05/22 12:47 CAT scan of the abdomen and pelvis without contrast shows no acute intra- abdominal or intrapelvic process. There is spondylodegenerative changes of the scan spine with diffuse osteoporosis. MRI is recommended if clinically indicated. I discussed these findings with the patient and family members. Counseled pt/family regarding: lab results, diagnosis, need for follow-up, rad results Medical Desision Making - Diagnostic Testing Diagnostic test were ordered, analyzed, and reviewed by me: Yes Radiological Interpretation: Reviewed by me, Teleradiologist Report - Risk of complications The pt has a mod risk of morbidity or mortality based on: Need for prescription drug management - Departure Departure Disposition: Home Clinical Impression: Abdominal pain, UTI (urinary tract infection), Elevated liver enzymes, Degenerative arthritis of spine Condition: Stable Critical Care Time: No Referrals: JONATHON ADRIAN MD [Primary Care Provider] - Follow up/PCP as directed Additional Instructions: Drink plenty of clear liquids. Take your medication as prescribed. Avoid fatty greasy spicy foods. Follow-up with your primary care provider today to make arranges for follow-up appointment in the next 3 days. Prescriptions: Ondansetron ODT 4 MG [Zofran Odt 4 mg] 4 mg PO Q6H PRN PRN #10 tablet PRN Reason: Vomiting Cephalexin Mh 500 mg [Keflex 500 mg] 500 mg PO TID #21 cap
[2022-10-05] MEDS ORDERED: Hydromorphone 1 mg/ml Injection IV ONE (09:45)
[2022-10-05] MEDS ORDERED: Zofran 4 MG/2 ML VIAL IV ONE (09:45)
[2022-10-05] MEDS ORDERED: Sodium Chloride 0.9% 1000 ML 1,000 ML IV STA (09:45)
[2022-10-05] MEDS ORDERED: PROTONIX 40 MG IV IV ONE ×2 (09:45→09:53)
[2022-10-05] MEDS ORDERED: Zofran 4 MG/2 ML VIAL ONE (09:53)
[2022-10-05] MEDS ORDERED: Hydromorphone 1 mg/ml Injection ONE (09:53)
[2022-10-05] MEDS ORDERED: Sodium Chloride 0.9% 1000 ML 1,000 ML ONE (09:53)
[2022-10-05 09:56] LABS: Absolute Neutrophil Ct (ANC) 8.78 x10^3/uL (1.4-6.9); BASOPHIL % 0.5 % (0.0-0.4); Basophil (Absolute #) 0.06 x10^3/uL (0-0.4); Eosinophil % 3.1 % (0.00-5.0); Eosinophil (Absolute #) 0.39 x10^3/uL (0-0.5); IMMATURE GRAN # 0.05 x10^3u/L (0.00-0.03); IMMATURE GRAN % 0.4 % (0.00-0.4); Lymphocyte (Absolute #) 2.25 x10^3/uL (1.0-4.6); Mean Cell Volume 90.3 fL (78-100); Mean Corpuscular Hemoglobin 30.1 pg (26-32); Mean Corpuscular Hgb Concent. 33.3 g/dL (32-36); Monocyte (Absolute #) 0.94 x10^3/uL (0.0-1.3); Monocytes % 7.5 % (0.0-12.0); Neutrophil % 70.5 % (36.0-66.0); Platelet Count 298 x10^3/uL (150-450); Red Blood Count 4.65 x10^6/uL (4.1-5.4); Red Cell Distribution Width 12.4 % (11.5-14.0); White Blood Count 12.5 x10^3/uL (4.0-10.5)
[2022-10-05 10:04] LABS: Appearance Cloudy (Clear); Bacteria None Seen /HPF (None Seen); Bilirubin Negative (Negative); Blood Negative (Negative); Epithelial Cells None Seen /HPF (None Seen); Glucose, Urine Negative (Negative); Hyaline Casts NONE SEEN /LPF (0-2); Ketones 15 (Negative); Leukocyte Esterase Small (Negative); Nitrite Negative (Negative); Protein,Urine Dip Trace (Negative); RBC 0-2 /HPF (0-5)
[2022-10-05 10:07] LABS: ALBUMIN 4.1 g/dL (3.5-5.0); ALKALINE PHOSPHATASE 159 U/L (38-126); AMYLASE 62 U/L (30-110); ANION GAP 13.4 MEQ/L (5-15); BLOOD UREA NITROGEN 11 mg/dL (7-17); CHLORIDE 105 mmol/L (98-107); Calcium 9.1 mg/dL (8.4-10.2); Carbon Dioxide 27 mmol/L (22-30); Creatinine 1 0.63 mg/dL (0.52-1.04); EST GLOMERULAR FILTRATION RATE > 60.0 ML/MIN; Glucose 133 mg/dL (74-106); LIPASE 130 U/L (23-300); Potassium 3.2 mmol/L (3.5-5.1); SGOT/AST 128 U/L (14-36); SGPT/ALT 71 U/L (0-35); SODIUM 143 mmol/L (137-145); Total Protein 7.5 g/dL (6.3-8.2)
[2022-10-05 10:14] LABS: ADD URINE CULTURE? YES (NO)
[2022-10-05] MEDS ORDERED: ROCEPHIN 1 Gm-D5w 50 ml Bag** 1 G/50 ML IVPB IV STA (11:55)
[2022-10-05] MEDS ORDERED: ROCEPHIN 1 Gm-D5w 50 ml Bag** 1 G/50 ML IVPB IV ONE (11:56)
[2022-10-05 12:02] VITALS: O2SAT 96
--- NOTE | 2022-10-05 12:37 | XRAY ---
CLINICAL HISTORY:Epigastric ABD pain COMPARISON:None. TECHNIQUES:Multi-slice CT scan of the abdomen and pelvis without IV contrast with multi-planar reconstruction. CTDI: 12.5 mGy, DLP: 618.37 mGy*cm. FINDINGS: Liver is average in size showing homogeneous parenchymal pattern. No focal parenchymal lesions. No evidence of intra or extra-hepatic biliary radicals dilatation. Gall bladder shows no stones or masses. Spleen is average in size showing normal texture. The right kidney is slightly mal-rotated, both kidneys are of normal site and size showing no stones, cysts, or back pressure changes. Normal both ureters. Normal CT appearance of pancreas and adrenal glands. Limited filling of the urinary bladder showing no stones within. Multiple pelvic small calcifications are noted. Status post hysterectomy with no sizable masses at the operative bed. No evidence of gross pathologically enlarged lymph nodes. No ascites. Large bowel diverticulosis noted without definite acute diverticulitis. No evidence of bowel dilatation. Appendix is visualized and appears grossly unremarkable with no evidence of periappendiceal fat stranding. Spondylodegnerative changes of the scanned spine is noted with diffuse osteoporosis and multi-level vertebral wedging and Intervertebral disc vacuum phenomena. Multilevel disc osteophyte complexes also noted. Lower chest cuts revealed bilateral basal reticulations. IMPRESSION: 1. Status post hysterectomy with no sizable masses at the operative bed. 2. Spondylodegnerative changes of the scanned spine with diffuse osteoporosis and multi-level vertebral wedging and vacuum phenomena. Multilevel disc osteophyte complexes also noted, would recommend MRI lumbar spine for further evaluation if clinically indicated. Electronically Signed by: Tulio Broderick MD. (10/05/2022 11:32:17 RECREATION ADVISER)
[2022-10-05 13:03] VITALS: BP 107/60; PULSE 64
== END 2022-10-05 13:11 | disposition home or self-care (01) ==
LOC: ED 09:16
DX: N39.0 Urinary tract infection, site not specified (principal); R10.13 Epigastric pain; R74.8 Abnormal levels of other serum enzymes; M47.9 Spondylosis, unspecified; R11.2 Nausea with vomiting, unspecified; Z79.85 Long-term (current) use of injectable non-insulin antidiabetic drugs; Z79.891 Long term (current) use of opiate analgesic; Z79.899 Other long term (current) drug therapy; Z28.310 Unvaccinated for COVID-19
CPT/HCPCS: 36000; 36415; 74176; 80053; 81001; 82150; 83690; 85025; 87086; 96365; 96374; 96375; 99284; J0696; J1170; J2405

== ENCOUNTER 2025-01-23 21:53 | Emergency (ER) | payer OTHER ==
[2025-01-23 22:22] VITALS: TEMP 97
[2025-01-23] MEDS ORDERED: Hydromorphone 1 mg/ml Injection ONE (22:28)
[2025-01-23] MEDS ORDERED: Zofran 4 MG/2 ML VIAL ONE (22:28)
[2025-01-23] MEDS ORDERED: PROTONIX 40 MG IV IV ONE (22:28)
[2025-01-23] MEDS: Zofran 4 MG/2 ML VIAL IV ONE (22:32)
[2025-01-23] MEDS: Hydromorphone 1 mg/ml Injection IV ONE (22:33)
[2025-01-23] MEDS: PROTONIX 40 MG IV IV ONE (22:35)
--- NOTE | 2025-01-23 22:36 | ERPHSYRPT ---
- History of Present Illness Time Seen by Provider: 01/23/25 22:20 Historian: patient Exam Limitations: no limitations Patient Subjective Stated Complaint: pt reports sudden onset sharp abdominal pain beginning around 8pm this evening, pt reports vomiting x [address] to the hospital. pt reports normal BM today. Triage Nursing Assessment: pt is aox3, appears in pain, pupils perrl, afebrile, resps easy and non labored, cap refill < 3 seconds, abd is distended, tender diffusely, bowel sounds present, pt skin pink warm dry. Physician History: This is a 59-year-old white female patient of Dr. Adrian who drove herself to the emergency department secondary to epigastric and bilateral upper quadrant abdominal pain. She denies chest pain. She denies shortness of breath. And route to the hospital she vomited 4 times per her report. Symptoms came on rather suddenly at around 8 PM. At approximately 6 PM patient ate [employer] chicken wrap. I did review labs that were performed earlier today I interpreted them as well. There was no evidence of any acute, emergent medical issues based on those labs that were done earlier today. Patient has a history of a hysterectomy in the past but no other abdominal surgeries. Patient has a history of migraine headaches, panic disorder, bipolar disorder, gastroesophageal reflux disease and diabetes. Timing/Duration: today Quality: sharpness, stabbing Abdominal Pain Onset Location: RUQ, LUQ, epigastric Pain Radiation: no radiation Severity of Pain-Max: moderate Severity of Pain-Current: moderate Modifying Factors: Improves With: nothing Associated Symptoms: loss of appetite, nausea, vomiting, No chest pain, No diaphoresis, No diarrhea, No shortness of breath Previous symptoms: no prior history, no recent treatment Allergies/Adverse Reactions: No Known Drug Allergies Allergy (Verified 01/23/25 22:21) Home Medications: Lorazepam 1 mg [Ativan 1 MG] 1 mg PO TIDPRN PRN 04/23/13 [History] Zolpidem Tartrate [Ambien Cr] 12.5 mg PO HS 04/23/13 [History] Desvenlafaxine Succinate [Desvenlafaxine Succinate ER] 1 tab PO DAILY 10/05/22 [History] Hydrocodone/Acetaminophen [Hydrocodone-Acetamin 10-325 mg] 0.5 tab PO BID 10/05/22 [History] Semaglutide [Ozempic] 0.25 mg SQ WEEKLY 10/05/22 [History] Hx Tetanus, Diphtheria Vaccination/Date Given: No Hx Influenza Vaccination/Date Given: Yes Hx Pneumococcal Vaccination/Date Given: No Immunizations Up to Date: Yes Travel Risk - International Travel Have you traveled outside of the country in past 3 weeks: No - Emerging Infectious Disease Are you exhibiting symptoms associated with any current EIDs: No - Review of Systems Constitutional: No Symptoms Eyes: No Symptoms Ears, Nose, & Throat: No Symptoms Respiratory: No Symptoms Cardiac: No Symptoms Abdominal/Gastrointestinal: Abdominal Pain, Nausea, Vomiting, Appetite Changes Genitourinary Symptoms: No Symptoms Musculoskeletal: No Symptoms Skin: No Symptoms Neurological: No Symptoms Psychological: No Symptoms Endocrine: No Symptoms Hematologic/Lymphatic: No Symptoms Immunological/Allergic: No Symptoms All Other Systems: Reviewed and Negative - Past Medical History Pertinent Past Medical History: Yes Neurological History: Migraines ENT History: No Pertinent History Cardiac History: No Pertinent History Respiratory History: No Pertinent History Endocrine Medical History: No Pertinent History Musculoskeletal History: No Pertinent History GI Medical History: No Pertinent History History: No Pertinent History Psycho-Social History: Anxiety, Bipolar, Depression, Panic Disorder Female Reproductive Disorders: No Pertinent History - Past Surgical History Past Surgical History: Yes Neuro Surgical History: No Pertinent History Cardiac: No Pertinent History Respiratory: No Pertinent History Gastrointestinal: No Pertinent History Genitourinary: No Pertinent History Musculoskeletal: No Pertinent History Female Surgical History: Hysterectomy Significant Family History: no pertinent family hx - Social History Smoking Status: Never smoker Exposure to second hand smoke: Yes Drug Use: none - Social Determinants of Health Will the patient participate in the screening: Yes Do you worry about a steady place to live?: No Do you have any problems with any of the following?: No known problems In the past 12 months,have you had to go without utilities?: No Transportation Issues: No Has anyone in your support network made you feel unsafe?: No Have you or anyone in your house had to go w/o enough food: No - Nursing Vital Signs Nursing Vital Signs: Initial Vital Signs Temperature 97.0 F 01/23/25 21:58 Pulse Rate 69 01/23/25 21:58 Respiratory Rate 20 01/23/25 21:58 Blood Pressure 189/85 01/23/25 21:58 O2 Sat by Pulse Oximetry 100 01/23/25 21:58 Pain Scale Pain Intensity 0 - Physical Exam General Appearance: no apparent distress, alert, anxiety Eye Exam: PERRL/EOMI, eyes nml inspection Ears, Nose, Throat Exam: normal ENT inspection, moist mucous membranes Neck Exam: normal inspection, non-tender, supple, full range of motion Respiratory Exam: normal breath sounds, lungs clear, airway intact, No chest tenderness, No respiratory distress Cardiovascular Exam: regular rate/rhythm, normal heart sounds, normal peripheral pulses Gastrointestinal/Abdomen Exam: soft, normal bowel sounds, tenderness (Epigastrium primarily but also has tenderness to bilateral upper quadrants), guarding (Epigastrium and bilateral upper quadrants to palpation), No rebound Pelvic Exam: not done Rectal Exam: not done Back Exam: normal inspection, normal range of motion, No CVA tenderness, No vertebral tenderness Extremity Exam: normal inspection, normal range of motion, pelvis stable Neurologic Exam: alert, oriented x 3, cooperative, 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, nml cerebellar function, nml station & gait, sensation nml Skin Exam: normal color, warm, dry Lymphatic Exam: No adenopathy SpO2 Interpretation: normal SpO2: 100 O2 Delivery: Room Air - Course Nursing assessment & vital signs reviewed: Yes Ordered Tests: Active Orders 24 hr Category Date Time Status IV Insertion STAT Care 01/23/25 22:25 Active ABDOMEN AND PELVIS W/0 CONTRAS [CT] Stat Exams 01/23/25 22:25 Completed AMYLASE Stat Lab 01/23/25 23:10 Completed CBC W DIFF Stat Lab 01/23/25 23:10 Completed CMP Stat Lab 01/23/25 23:10 Completed LIPASE Stat Lab 01/23/25 23:10 Completed UA W/RFX UR CULTURE Stat Lab 01/23/25 22:27 Completed Medication Summary Discontinued Medications Generic Name Dose Route Start Last Admin Trade Name Freq PRN Reason Stop Dose Admin Hydromorphone HCl 1 mg 01/23/25 22:25 01/23/25 22:33 Hydromorphone 1 Mg/1ml Inj IV 01/23/25 22:26 1 mg STAT ONE Administration Hydromorphone HCl Confirm 01/23/25 22:28 Hydromorphone 1 Mg/1ml Inj Administered 01/23/25 22:29 Dose 1 mg .ROUTE .STK-MED ONE Sodium Chloride 1,000 mls @ 999 mls/hr 01/23/25 22:25 01/23/25 23:30 Sodium Chloride 0.9% 1000 Ml IV 01/23/25 23:25 Infused .Q1H1M STA Infusion Sodium Chloride Confirm 01/23/25 22:28 Sodium Chloride 0.9% 1000 Ml Administered 01/23/25 22:29 Dose 1,000 mls @ ud .ROUTE .STK-MED ONE Ondansetron HCl 4 mg 01/23/25 22:25 01/23/25 22:32 Ondansetron Hcl 4 Mg/2 Ml Vial IV 01/23/25 22:26 4 mg STAT ONE Administration Ondansetron HCl Confirm 01/23/25 22:28 Ondansetron Hcl 4 Mg/2 Ml Vial Administered 01/23/25 22:29 Dose 4 mg .ROUTE .STK-MED ONE Pantoprazole Sodium 40 mg 01/23/25 22:25 01/23/25 22:35 Pantoprazole 40 Mg Vial IV 01/23/25 22:26 40 mg STAT ONE Administration Pantoprazole Sodium Confirm 01/23/25 22:28 Pantoprazole 40 Mg Vial Administered 01/23/25 22:29 Dose 40 mg IV .STK-MED ONE Lab/Rad Data: Laboratory Result Diagrams 01/23/25 23:10 01/23/25 23:10 Laboratory Results 01/23/25 01/23/25 01/23/25 Range/Units 23:10 23:10 22:27 WBC 14.8 H (3.98-10.04) x10^3/uL RBC 4.30 (3.93-5.22) x10^6/uL Hgb 13.2 (11.2-15.7) g/dL Hct 40.7 (34.1-44.9) % MCV 94.7 (79.4-94.8) fL MCH 30.7 (25.6-32.2) pg MCHC 32.4 (32.2-35.5) g/dL RDW 12.0 (11.7-14.4) % Plt Count 289 (182-369) x10^3/uL MPV 9.8 (9.4-12.3) fL Gran % 68.2 (34.0-71.1) % Immature Gran % (Auto) 0.5 H (0.001-0.429) % Nucleat RBC Rel Count 0.0 (0.00-0.2) % Eos # (Auto) 0.39 H (0.04-0.36) x10^3/uL Immature Gran # (Auto) 0.07 H (0.001-0.031) x10^3u/L Absolute Lymphs (auto) 3.28 (1.18-3.74) x10^3/uL Absolute Monos (auto) 0.88 H (0.24-0.86) x10^3/uL Absolute Nucleated RBC 0.00 (0.00-0.012) x10^3u/L Lymphocytes % 22.2 (19.3-51.7) % Monocytes % 6.0 (4.7-12.5) % Eosinophils % 2.6 (0.7-5.8) % Basophils % 0.5 (0.1-1.2) % Absolute Granulocytes 10.07 H (1.56-6.13) x10^3/uL Basophils # 0.07 (0.01-0.08) x10^3/uL Sodium 141 (135-145) mmol/L Potassium 3.6 (3.5-5.1) mmol/L Chloride 109 H (98-107) mmol/L Carbon Dioxide 27 (22-30) mmol/L Anion Gap 8.5 (5-15) MEQ/L BUN 16 (7-17) mg/dL Creatinine 0.55 (0.52-1.04) mg/dL Estimated GFR 105.5 ML/MIN Glucose 167 H (74-106) mg/dL Calcium 8.8 (8.4-10.2) mg/dL Total Bilirubin < 0.10 L (0.2-1.3) mg/dL AST 26 (14-36) U/L ALT 20 (0-35) U/L Alkaline Phosphatase 117 (38-126) U/L Serum Total Protein 6.8 (6.3-8.2) g/dL Albumin 3.9 (3.5-5.0) g/dL Amylase 73 (30-110) U/L Lipase 101 (23-300) U/L Urine Color Yellow (Yellow) Urine Appearance Turbid A (Clear) Urine pH 6.5 (4.6-8.0) Ur Specific [place] 1.020 (1.005-1.030) Urine Protein Negative (Negative) Urine Glucose (UA) Negative (Negative) mg/dL Urine Ketones Negative (Negative) Urine Blood Negative (Negative) Urine Nitrite Negative (Negative) Urine Bilirubin Negative (Negative) Urine Urobilinogen 1.0 A (0.2) mg/dL Ur Leukocyte Esterase Trace A (Negative) U Hyaline Cast (Auto) NONE SEEN (0-2) /LPF Urine Microscopic RBC 0-2 (0-5) /HPF Urine Microscopic WBC 3-5 (0-5) /HPF Ur Epithelial Cells None Seen (None Seen) /HPF Urine Bacteria None Seen (None Seen) /HPF Urine Culture Reflexed NO (NO) - Progress Progress: improved, re-examined Progress Note: 01/23/25 22:31 My medical decision making and the assignment of moderate complexity of this patient's medical issue today is based on review of the patient's past medical history, review of the patient's medication list, reviewed the patient drug allergy list, history of present illness and physical findings on examination. The workup in this patient includes placement of intravenous line, infusion of crystalloid solution, infusion of Protonix, infusion of Zofran, infusion of Dilaudid, CBC, CMP, amylase, lipase, urinalysis, CT scan of the abdomen pelvis without contrast. Differential diagnosis includes but is not limited to bowel obstruction, gastric ulcer, duodenal ulcer, gastritis, pancreatitis, cholecystitis/cholelithiasis, appendicitis, pyelonephritis, UTI 01/24/25 00:08 I interpreted the patient's laboratory data results. Based on the laboratory data results, there is leukocytosis but no other acute, emergent medical issue. Her leukocytosis is likely secondary to stress reaction from vomiting 4 times just prior to arrival. The CT scan of the abdomen pelvis without contrast was interpreted by the radiologist and I reviewed the impression. The impression states large bowel diverticulosis without definite acute diverticulitis. No other abnormality is seen in this present study. The appendix is seen and is within normal limits 01/24/25 00:23 Patient is reexamined. She has no abdominal pain. She has no chest pain. She has no nausea or vomiting symptoms. She is feeling much better. Counseled pt/family regarding: lab results, diagnosis, rad results Medical Desision Making - Diagnostic Testing Diagnostic test were ordered, analyzed, and reviewed by me: Yes Radiological Interpretation: Reviewed by me, Teleradiologist Report - Risk of complications Low Risk: Low risk of morbidity from additional dx testing or treatment The pt has a mod risk of morbidity or mortality based on: Need for prescription drug management - Departure Departure Disposition: Home Clinical Impression: Epigastric abdominal pain, Vomiting Condition: Stable Critical Care Time: No Referrals: JONATHON ADRIAN MD [Primary Care Provider, [facility]] - Follow up/PCP as directed Additional Instructions: Drink plenty of clear liquids before advancing your diet. Avoid fatty greasy spicy foods. Call your primary care provider later today, 01/24/2025, for further evaluation management. Prescriptions: Ondansetron ODT 4 MG [Zofran Odt 4 mg] 4 mg PO Q6H PRN PRN #10 tablet PRN Reason: Vomiting
[2025-01-23 23:13] LABS: BASOPHIL % 0.5 % (0.1-1.2); Basophil (Absolute #) 0.07 x10^3/uL (0.01-0.08); Eosinophil (Absolute #) 0.39 x10^3/uL (0.04-0.36); Hematocrit 40.7 % (34.1-44.9); Hemoglobin 13.2 g/dL (11.2-15.7); IMMATURE GRAN # 0.07 x10^3u/L (0.001-0.031); IMMATURE GRAN % 0.5 % (0.001-0.429); Lymphocyte (Absolute #) 3.28 x10^3/uL (1.18-3.74); Mean Corpuscular Hemoglobin 30.7 pg (25.6-32.2); Mean Corpuscular Hgb Concent. 32.4 g/dL (32.2-35.5); Monocyte (Absolute #) 0.88 x10^3/uL (0.24-0.86); NUCLEATED RBC # 0.00 x10^3u/L (0.00-0.012); NUCLEATED RBC % 0.0 % (0.00-0.2); Platelet Count 289 x10^3/uL (182-369); Red Blood Count 4.30 x10^6/uL (3.93-5.22); White Blood Count 14.8 x10^3/uL (3.98-10.04)
[2025-01-23 23:21] LABS: Glucose, Urine Negative (Negative); Protein,Urine Dip Negative (Negative); RBC 0-2 /HPF (0-5)
[2025-01-23 23:28] LABS: Calcium 8.8 mg/dL (8.4-10.2); Carbon Dioxide 27 mmol/L (22-30); Creatinine 1 0.55 mg/dL (0.52-1.04); EST GLOMERULAR FILTRATION RATE 105.5 ML/MIN; Glucose 167 mg/dL (74-106); Potassium 3.6 mmol/L (3.5-5.1); SGOT/AST 26 U/L (14-36); SGPT/ALT 20 U/L (0-35); Total Protein 6.8 g/dL (6.3-8.2)
--- NOTE | 2025-01-24 00:02 | XRAY ---
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 Coronal and sagittal reconstructions were also performed, as indicated, to increase the sensitivity for detecting clinically relevant pathology. The CT scan was performed according to ALARA (as low as reasonably achievable). FINDINGS: The visualized lung bases are clear. Evaluation of the abdominal and pelvic visceral organs is limited without intravenous contrast. The unenhanced liver, spleen, pancreas, and adrenal glands are grossly unremarkable. The gallbladder is present. The kidneys are normal in size and attenuation without obvious calcification. There is no hydronephrosis or perinephric stranding. The ureters are normal in caliber. No adenopathy or fluid collections are seen. Large bowel diverticulosis is noted without definite acute diverticulitis. No evidence of focal or diffuse bowel wall thickening or evidence of bowel obstruction is seen. The appendix is visualized in the right lower quadrant and appears within normal limits. The aorta is normal in caliber. The urinary bladder is normal in contour. The pelvic viscera are grossly unremarkable. Multiple small pelvic calcifications are noted. Spondylodegenerative changes of the scanned spine are noted with diffuse osteoporosis, multilevel vertebral wedging, and intervertebral disc vacuum phenomena. Multilevel disc osteophyte complexes are also noted. IMPRESSION: 1. Large bowel diverticulosis is noted without definite acute diverticulitis. 2. No other abnormality is seen in the present study. As compared to the prior CT scan, there are no changes in the findings. Electronically Signed by: Milton Tolliver MD. (01/24/2025 00:00:13 EDT)
[2025-01-24 00:14] VITALS: PULSE 63
[2025-01-24 00:38] VITALS: BP 157/80; RESP 17; O2SAT 99
== END 2025-01-24 00:37 | disposition home or self-care (01) ==
LOC: ED 21:53
DX: R10.13 Epigastric pain (principal); R11.2 Nausea with vomiting, unspecified; R10.11 Right upper quadrant pain; R10.12 Left upper quadrant pain; E11.9 Type 2 diabetes mellitus without complications; Z79.85 Long-term (current) use of injectable non-insulin antidiabetic drugs; Z79.899 Other long term (current) drug therapy